=== PATIENT | female | born 1985 | race Caucasian/White ===

== ENCOUNTER 2022-07-28 01:25 | Emergency (ER) | payer OTHER ==
[2022-07-28 01:38] VITALS: BP 121/84; PULSE 131; RESP 18; TEMP 102.9; BMI 19.0
[2022-07-28] MEDS ORDERED: ACETAMINOPHEN 500 MG TABLET (FP) PO ONE (01:39)
[2022-07-28] MEDS ORDERED: ACETAMINOPHEN 500 MG TABLET (FP) ONE (01:40)
[2022-07-28] MEDS ORDERED: ALBUTEROL SO4 2.5/IPRATROPIUM 0.5 INH SOL 3 ML VIAL.NEB. NEB ONE ×2 (01:44→02:05)
[2022-07-28] MEDS ORDERED: predniSONE 20 MG TABLET (UD) PO ONE (01:44)
[2022-07-28] MEDS ORDERED: predniSONE 20 MG TABLET (UD) ONE (01:45)
[2022-07-28] MEDS: ALBUTEROL SO4 2.5/IPRATROPIUM 0.5 INH SOL 3 ML VIAL.NEB. NEB SCH ×2 (01:50→01:55)
[2022-07-28] MEDS ORDERED: AZITHROMYCIN 250 MG TABLET PO STA (03:05)
[2022-07-28] MEDS ORDERED: AZITHROMYCIN 250 MG TABLET ONE (03:06)
== END 2022-07-28 03:17 | disposition home or self-care (01) ==
LOC: FER 01:25
PROC: 3E0F7GC Introduction of Other Therapeutic Substance into Respiratory Tract, Via Natural or Artificial Opening (ICD-10-PCS; principal; 2022-07-28)
DX: J18.9 Pneumonia, unspecified organism (principal)
CPT/HCPCS: 0241U-QW; 71045-TC-FY; 99284-25